=== PATIENT | female | born 1990 | race Caucasian/White ===

== ENCOUNTER 2021-11-07 14:39 | Inpatient (IN) ==
[2021-11-07] MEDS ORDERED: BETAMETH SODIUM PHOS/ACETATE 30 MG/5 ML VIAL IM SCH (15:30)
[2021-11-07] MEDS ORDERED: ONDANSETRON 4 MG/2 ML VIAL IV PRN (17:30)
[2021-11-07] MEDS: LACTATED RINGERS 1,000 ML IV SCH (18:43)
[2021-11-07 19:04] LABS: Basophils % 0.2 % (0.0-0.8); Hematocrit 33.7 VOL% (35.7-47.0); Hemoglobin 11.4 GM/DL (12.0-16.0); Immature Granulocytes % 2.8 %; Immature Granulocytes Absolute 0.47 #; Lymphocytes # 1.6 10*3/uL (1.4-4.0); Lymphocytes % 9.3 % (21.3-54.2); Mean Corpuscular HGB Conc 33.8 GM/DL (32-36); Mean Corpuscular Volume 93.6 FL (87-102); Mean Platelet Volume 10.4 FL (9.6-12.0); Monocytes # 0.4 10*3/uL (0.11-0.8); Monocytes % 2.1 % (1.7-12.7); Neutrophils % 85.6 % (38.7-73.9); Platelet Count 303 T/CUMM (130-400); Red Cell Distribution Width 13.1 % (9.3-17.3); White Blood Count 16.9 T/CUMM (4-12)
[2021-11-07] MEDS ORDERED: MEPERIDINE 50 MG/1 ML VIAL IV PRN (19:21)
[2021-11-08] MEDS: LACTATED RINGERS 1,000 ML IV SCH ×2 (01:33→09:31)
[2021-11-08] MEDS ORDERED: LEVOTHYROXINE 112 MCG TABLET PO SCH (06:30)
[2021-11-08] MEDS ORDERED: MULTIVITAMIN (PRENATAL) TABLET PO SCH (09:00)
== END 2021-11-08 09:45 | DRG 833 ==
LOC: N.LDOUT 14:39 → N.LD 14:44
PROVIDERS: ADMIT Obstetrics & Gynecology; ATTEND Obstetrics & Gynecology

== ENCOUNTER 2021-12-18 05:54 | Inpatient (IN) ==
[2021-12-18] MEDS ORDERED: ceFAZolin 2,000 MG/50 ML DUPLEX IV ONE (06:10)
[2021-12-18] MEDS ORDERED: CITRIC ACID/SODIUM CITRATE 30 ML UDCUP PO ONE (06:10)
[2021-12-18] MEDS ORDERED: TRANEXAMIC ACID 1,000 MG in SODIUM CHLORIDE 0.9% 100 ML IV PRN (06:10)
[2021-12-18] MEDS ORDERED: miSOPROStoL 200 MCG TABLET RECTAL PRN (06:10)
[2021-12-18] MEDS ORDERED: LACTATED RINGERS 1,000 ML IV ONE (06:10)
[2021-12-18] MEDS ORDERED: METHYLERGONOVINE 0.2 MG/1 ML AMP IM PRN (06:10)
[2021-12-18] MEDS ORDERED: OXYTOCIN/LR 20 UNIT/1,000 ML BAG IV ONE ×2 (06:10→10:36)
[2021-12-18] MEDS ORDERED: ONDANSETRON 4 MG/2 ML VIAL IV PRN ×2 (06:10→10:36)
[2021-12-18] MEDS ORDERED: FAMOTIDINE 20 MG/2 ML VIAL IV ONE (06:10)
[2021-12-18] MEDS ORDERED: LACTATED RINGERS 500 ML IV PRN (06:10)
[2021-12-18] MEDS ORDERED: CARBOPROST TROMETHAMINE 250 MCG/ML AMP IM PRN (06:10)
[2021-12-18 06:42] LABS: Basophils # 0.1 10*3/uL (0.0-0.2); Basophils % 0.6 % (0.0-0.8); Eosinophils # 0.1 10*3/uL (0.0-0.87); Eosinophils % 1.1 % (0.00-10.9); Hematocrit 35.9 VOL% (35.7-47.0); Hemoglobin 12.1 GM/DL (12.0-16.0); Immature Granulocytes % 2.1 %; Lymphocytes # 2.1 10*3/uL (1.4-4.0); Lymphocytes % 21.2 % (21.3-54.2); Mean Corpuscular HGB Conc 33.7 GM/DL (32-36); Mean Corpuscular Volume 93.7 FL (87-102); Mean Platelet Volume 10.1 FL (9.6-12.0); Monocytes # 0.7 10*3/uL (0.11-0.8); Platelet Count 230 T/CUMM (130-400); Red Blood Count 3.83 MC/CUMM (3.8-5.5); Red Cell Distribution Width 14.1 % (9.3-17.3); White Blood Count 9.7 T/CUMM (4-12)
[2021-12-18 07:02] LABS: Alanine Aminotransferase 20 U/L (13-56); Albumin 2.6 G/DL (3.4-5.0); Alkaline Phosphatase 179 U/L (45-117); Aspartate Amino Transferase 19 U/L (0-37); Bilirubin,Total < 0.39 MG/DL (0.20-1.00); Blood Urea Nitrogen 4 MG/DL (7-18); Calcium 8.7 MG/DL (8.5-10.1); Carbon Dioxide 20 MMOL/L (21-32); Chloride 110 MMOL/L (98-107); Glucose 93 MG/DL (74-106); Osmolality,Calculated 277.3 MOS/KG (273-304); Potassium 3.6 MMOL/L (3.5-5.1); Sodium 141 MMOL/L (136-145); Total Protein 6.9 G/DL (6.4-8.2)
[2021-12-18] MEDS ORDERED: LACTATED RINGERS 1,000 ML IV SCH ×2 (07:30→11:00)
[2021-12-18] MEDS ORDERED: SODIUM CHLORIDE 0.9% 0 ML IV ONE (08:39)
[2021-12-18] MEDS ORDERED: miSOPROStoL 200 MCG TABLET ONE (08:39)
[2021-12-18] MEDS ORDERED: TRANEXAMIC ACID 1,000 MG/10 ML VIAL ONE (08:39)
[2021-12-18] MEDS ORDERED: CARBOPROST TROMETHAMINE 250 MCG/ML AMP IM ONE (08:40)
[2021-12-18] MEDS ORDERED: METHYLERGONOVINE 0.2 MG/1 ML AMP ONE (08:40)
[2021-12-18] MEDS ORDERED: buprenorphine HCL 0.3 MG/ML VIAL ONE (09:30)
[2021-12-18] MEDS ORDERED: BUPIVACAINE SPINAL 0.75% 2 ML AMP SPINAL ONE (09:46)
[2021-12-18] MEDS ORDERED: ACETAMINOPHEN INJ 1,000 MG/100 ML VIAL IV ONE (10:08)
[2021-12-18] MEDS ORDERED: PHENYLEPHRINE 1 MG/10 ML SYRINGE IV ONE (10:08)
[2021-12-18] MEDS ORDERED: KETOROLAC 30 MG/1 ML VIAL ONE (10:08)
[2021-12-18 10:17] LABS: Cord Arterial Blood HCO3 21.3 MMOL/L
[2021-12-18 10:17] LABS: Bacteria,Urine Occasional /HPF (Few); Glucose,Urine (UA) Negative (Negative); Ketones,Urine 15 mg/dL (Negative); Mucus,Urine Occasional /LPF (Occasional); Nitrite,Urine Negative (Negative); Protein,Urine Negative (Negative); RBC,Urine 1 /HPF (0-4); Squamous Epithelial Cell,Urine Occasional /HPF (0-10); Urine Appearance Clear (Clear); Urine Color Yellow (Yellow); Urine pH 8.5 (4.5-8.0)
[2021-12-18 10:18] LABS: Bilirubin,Urine Negative (Negative); Blood, Urine Negative (Negative); Urine Urobilinogen 0.2 eU/dL (<2.0)
[2021-12-18 10:19] LABS: Cord Venous Blood HCO3 22.7 MMOL/L; Cord Venous Blood PCO2 47.5 MMHG; Cord Venous Blood PO2 29.5
[2021-12-18] MEDS ORDERED: ONDANSETRON 4 MG/2 ML VIAL ONE (10:33)
[2021-12-18] MEDS ORDERED: ACETAMINOPHEN 325 MG TABLET PO PRN (10:36)
[2021-12-18] MEDS ORDERED: RHO(D) IMMUNE GLOBULIN 300 MCG SYRINGE IM ONE (10:36)
[2021-12-18] MEDS: KETOROLAC 30 MG/1 ML VIAL IV SCH ×2 (15:55→22:06)
[2021-12-18] MEDS: ACETAMINOPHEN 500 MG TABLET PO SCH ×2 (15:59→21:59)
[2021-12-18] MEDS: DOCUSATE SODIUM 100 MG CAPSULE PO SCH (20:22)
[2021-12-19] MEDS: IBUPROFEN 800 MG TABLET PO PRN ×2 (05:43→15:28)
[2021-12-19 06:12] LABS: Basophils % 0.4 % (0.0-0.8); Eosinophils # 0.1 10*3/uL (0.0-0.87); Hematocrit 32.4 VOL% (35.7-47.0); Hemoglobin 10.6 GM/DL (12.0-16.0); Immature Granulocytes % 1.3 %; Immature Granulocytes Absolute 0.12 #; Lymphocytes # 1.2 10*3/uL (1.4-4.0); Lymphocytes % 13.2 % (21.3-54.2); Mean Corpuscular HGB Conc 32.7 GM/DL (32-36); Mean Corpuscular Volume 96.4 FL (87-102); Mean Platelet Volume 10.3 FL (9.6-12.0); Monocytes # 0.6 10*3/uL (0.11-0.8); Monocytes % 6.8 % (1.7-12.7); Neutrophils % 77.3 % (38.7-73.9); Platelet Count 175 T/CUMM (130-400); Red Blood Count 3.36 MC/CUMM (3.8-5.5); Red Cell Distribution Width 14.2 % (9.3-17.3); White Blood Count 9.4 T/CUMM (4-12)
[2021-12-19] MEDS: LEVOTHYROXINE 88 MCG TABLET PO SCH (06:52)
[2021-12-19] MEDS: DOCUSATE SODIUM 100 MG CAPSULE PO SCH ×2 (09:21→20:57)
[2021-12-19] MEDS: MULTIVITAMIN (PRENATAL) TABLET PO SCH (09:21)
[2021-12-19] MEDS: oxyCODONE/ACETAMINOPHEN 5-325 MG TABLET PO PRN ×3 (09:22→23:16)
[2021-12-19] MEDS: MAGNESIUM HYDROXIDE SUSP 30 ML UDCUP PO PRN (20:57)
[2021-12-20] MEDS: LEVOTHYROXINE 88 MCG TABLET PO SCH (05:53)
[2021-12-20] MEDS: MAGNESIUM HYDROXIDE SUSP 30 ML UDCUP PO PRN ×2 (09:02→20:49)
[2021-12-20] MEDS: MULTIVITAMIN (PRENATAL) TABLET PO SCH (09:02)
[2021-12-20] MEDS: DOCUSATE SODIUM 100 MG CAPSULE PO SCH ×2 (09:02→20:50)
[2021-12-20] MEDS: IBUPROFEN 800 MG TABLET PO PRN (09:06)
[2021-12-20] MEDS: oxyCODONE/ACETAMINOPHEN 5-325 MG TABLET PO PRN (17:46)
[2021-12-20] MEDS: SIMETHICONE CHEW 80 MG TABLET PO PRN (20:50)
[2021-12-21] MEDS: LEVOTHYROXINE 88 MCG TABLET PO SCH (06:00)
[2021-12-21 08:12] VITALS: BP 103/53
[2021-12-21] MEDS: DOCUSATE SODIUM 100 MG CAPSULE PO SCH (08:41)
[2021-12-21] MEDS: SIMETHICONE CHEW 80 MG TABLET PO PRN (08:41)
[2021-12-21] MEDS: MULTIVITAMIN (PRENATAL) TABLET PO SCH (08:41)
[2021-12-21] MEDS: MAGNESIUM HYDROXIDE SUSP 30 ML UDCUP PO PRN (08:41)
== END 2021-12-21 16:00 | disposition home or self-care (01) | DRG 788 ==
LOC: N.LD 05:54 → N.OB 13:38
PROVIDERS: ADMIT Obstetrics & Gynecology; ATTEND Obstetrics & Gynecology
PROC: LDCSECT (ICD-10-PCS; 2021-12-18 09:30)